=== PATIENT | male | born 1965 | race Caucasian/White ===

== ENCOUNTER 2020-03-06 17:59 | Emergency (ER) | payer BC, SELFPAY ==
[2020-03-06] VITALS (8 sets, daily range): BP systolic 147–181; BP diastolic 81–122; PULSE 62–108; RESP 16–20; TEMP 36.5–36.8; O2SAT 98–100
--- NOTE | ~2020-03-06 | XR_ITS ---
EXAMINATION: XR chest 2V DATE: 03/06/2020 21:13 INDICATION: Heart palpitations, history of hypertension TECHNIQUE: PA and lateral views of the chest are obtained. COMPARISON: None available FINDINGS: The lungs are free of acute opacities. There is no pleural effusion or pneumothorax. The ca rdiomediastinal silhouette is normal. There is moderate thoracic spondylosis. IMPRESSION: 1. No acute cardiopulmonary abnormality. Reviewed, dictated and finalized at location A. RCYCLE BUILDER
--- NOTE | 2020-03-06 18:01 | ECG_ITS ---
Measurements Intervals [place] Rate: 103 P: UT: 0 QRS: 32 QRSD: 88 T: 30 QT: 330 QTc: 432 Interpretive Statements MULTIFOCAL ATRIAL TACHYCARDIA FREQUENT ATRIAL PREMATURE COMPLEXES BASELINE WANDER- V1-V2 ABNORMAL ECG Electronically Signed On 03-07-2020 11:51:35 [employer] PUMP OPERATOR by Jean Lopez D.O.
[2020-03-06 18:20] LABS: Basophils Absolute Auto 0.1 K/mm3 (0.0-0.1); Basophils Percent Auto 0.7 % (0.2-1.2); Eosinophils Absolute Auto 0.2 K/mm3 (0-0.3); Hematocrit 47.6 % (42.0-52.0); Hemoglobin 15.7 g/dL (14.0-18.0); Immature Granulocyte Absolute 0.03 K/mm3 (0.00-0.031); Immature Granulocyte Percent A 0.3 % (0-0.5); Lymphocytes Absolute Auto 3.23 K/mm3 (0.9-3.2); Lymphocytes Percent Auto 31.9 % (18.3-44.2); Mean Corpuscular Volume 84.8 fl (80-100); Monocytes Absolute Auto 0.8 K/mm3 (0.1-0.6); Monocytes Percent Auto 8.2 % (2.6-8.5); Neutrophils Absolute Auto 5.8 K/mm3 (1.3-6.7); Neutrophils Percent Auto 56.9 % (45.5-73.1); Platelet Count Result 264 k/mm3 (150-375); Red Blood Count 5.61 M/mm3 (4.6-6.20); Red Cell Distribution Width 13.5 % (11.5-14.5); White Blood Count 10.1 K/mm3 (4.5-10.0)
[2020-03-06 18:29] LABS: INR 0.9; Prothrombin Time 12.6 Seconds (11.1-14.7)
[2020-03-06 18:30] LABS: Partial Thromboplastin Time 27.9 SECONDS (22.3-36.8)
[2020-03-06 18:33] LABS: Anion Gap 8 mmol/L (8-16); Blood Urea Nitrogen 24 mg/dL (9-20); Carbon Dioxide 31 mmol/L (22-30); Chloride 100 mmol/L (98-107); Estimated CRCL calculation 74 ml/min; Estimated Glomerular Filt Rate > 60; Glucose 116 mg/dL (75-110); Sodium 139 mmol/L (137-145)
[2020-03-06 18:44] LABS: Troponin I < 0.012 ng/mL (0.000-0.034)
[2020-03-06] MEDS: ASPIRIN 81 MG CHEWABLE TABLET 324 MG PO (21:22)
--- NOTE | 2020-03-06 21:28 | ED.GENADULT ---
HPI - General Adult General Chief complaint: Chest Pain Stated complaint: Chest heaviness Time Seen by Provider: 03/06/20 21:09 Source: patient History of Present Illness HPI narrative: Patient is a 55 y/o male complaining of heavy heart beat starting about 4 hours ago. He states that it lasted approximately 2 hours and resolved spontaneously. There is no alleviating or exacerbating factor. He denies any chest pain or SOB. He states that he had a similar episodes last night and it also resolved spontaneously. He states that he his BP was high around 150s/100s. Related Data Allergies Allergy/AdvReac Type Severity Reaction Status Date / Time Penicillins Allergy Unknown Unknown Verified 03/06/20 18:09 Review of Systems Constitutional: Constitutional: Denies chills, Denies fever(s), Denies headache(s) and Denies weakness Eyes: Eyes: Denies blurry vision ENT: Denies headache(s) and Denies neck pain Cardiovascular: Cardiovascular: Denies chest pain, Denies dyspnea and Reports other ( heavy heart beat ) Respiratory: Respiratory: Denies cough and Denies dyspnea Gastrointestinal: Gastrointestinal: Denies abdominal pain, Denies diarrhea, Denies nausea and Denies vomiting Genitourinary: Genitourinary: Denies hematuria and Denies dysuria Musculoskeletal: Musculoskeletal: Denies back pain and Denies neck pain Neurologic: Denies headache(s) and Denies weakness PMFSH Past Medical History Medical History BMI 29.0-29.9,adult Social History Social History Smoking status: Never smoker Alcohol intake: current Exam Const: General: no acute distress and well developed Orientation/consciousness: oriented to person, oriented to place, oriented to time and patient oriented x3 HENMT: Head: normocephalic Ears: external ears normal General nose exam: Normal external nose present Eyes: General: appearance normal, both eyes and all related structures Conjunctivae: conjunctivae normal Neck: Neck: normal visual inspection and full ROM Chest: Chest palpation & inspection: normal inspection of the chest and no tenderness Resp: Effort & Inspection: normal respiratory effort Auscultation: clear to auscultation bilaterally Cardio: Rate: regular rate Rhythm: regular rhythm GI: GI Palp: No abdominal tenderness and Yes Soft to palpation Skin: General skin exam: normal color and turgor normal Neuro: General: oriented to person, oriented to place, oriented to time and patient oriented x3 Cognition (Neuro): normal cognition Extrem: General: normal to inspection, full ROM and no pedal edema Psych: Appearance: grossly normal Mental Status: mental status grossly normal Affect: normal affect Course Vital Signs Vital signs: Vital Signs Temperature 36.5 C 03/06/20 18:03 Pulse Rate 108 H 03/06/20 18:03 Respiratory Rate 20 03/06/20 18:03 Blood Pressure 181/122 H 03/06/20 18:03 Pulse Oximetry 100 03/06/20 18:03 Temperature 36.8 C 03/06/20 23:36 Pulse Rate 62 03/06/20 23:36 Respiratory Rate 16 03/06/20 23:36 Blood Pressure 160/86 H 03/06/20 23:36 Pulse Oximetry 99 03/06/20 23:36 Medical Decision Making Vital Signs Vital Signs: Vital Signs Temperature 36.5 C 03/06/20 18:03 Pulse Rate 108 H 03/06/20 18:03 Respiratory Rate 20 03/06/20 18:03 Blood Pressure 181/122 H 03/06/20 18:03 Pulse Oximetry 100 03/06/20 18:03 Temperature 36.8 C 03/06/20 23:36 Pulse Rate 62 03/06/20 23:36 Respiratory Rate 16 03/06/20 23:36 Blood Pressure 160/86 H 03/06/20 23:36 Pulse Oximetry 99 03/06/20 23:36 Lab Data Result diagrams: 03/06/20 18:11 03/06/20 18:11 Labs: Lab Results 03/06/20 03/06/20 03/06/20 Range/Units 18:11 18:11 18:11 WBC 10.1 H (4.5-10.0) K/mm3 RBC 5.61 (4.6-6.20) M/mm3 Hgb 15.7 (14.0-18.0) g/dL Hct 47.6
--- NOTE | 2020-03-06 21:29 | PC.NURSE ---
2nd trop drawn by JAE ellis and sent to lab.
[2020-03-06 21:56] LABS: Troponin I < 0.012 ng/mL (0.000-0.034)
--- NOTE | 2020-03-06 22:57 | ECG_ITS ---
Measurements Intervals [place] Rate: 67 P: 42 VT: 195 QRS: 28 QRSD: 90 T: 19 QT: 366 QTc: 389 Interpretive Statements SINUS RHYTHM BORDERLINE AV CONDUCTION DELAY BASELINE ARTIFACT- I, II, III, V2 BORDERLINE ECG Electronically Signed On 03-07-2020 7:09:57 FAMILY LIFE EDUCATOR by Jean Lopez D.O.
== END 2020-03-06 23:38 | disposition home or self-care (01) ==
PROVIDERS: Emergency Provider Emergency Medicine; PCP Family Medicine
DX: R00.2 Palpitations (principal); I49.1 Atrial premature depolarization; I10 Essential (primary) hypertension; I47.1 Supraventricular tachycardia; R94.31 Abnormal electrocardiogram [ECG] [EKG]
CPT/HCPCS: 36415; 71046; 80048; 84484; 85025; 85610; 85730; 93005; 99284; A9270

== ENCOUNTER 2020-03-21 09:43 | Outpatient (CLI) | payer BC, SELFPAY ==
--- NOTE | 2020-03-23 16:20 | WPDHOLTEREM ---
Holter/Event Monitor Holter/Event Monitor Date of procedure: 03/21/20 Procedure Type: 24 hour holter monitor Indications: Palpitations Conclusion: 1. 24 hour holter monitor on 03/21/20. 2. Predominant rhythm is sinus rhythm or ectopic atrial rhythm/wandering pacemaker. 3. There are 5,898 premature supraventricular complexes, 1,071 supraventricular couplets. There are 814 atrial tachycardia, fastest at 171 bpm and longest lasting 7 beats. 4. There are 422 premature ventricular complexes and 7 ventricular couplets. No ventricular tachycardia. 5. No sinoatrial or atrioventricular blocks. No significant pauses greater than 2 seconds. 6. No symptoms available for correlation.
== END 2020-03-21 09:44 | disposition home or self-care (01) ==
PROVIDERS: PCP Family Medicine; Visit Provider Physician Assistant Medical
DX: R00.2 Palpitations (principal); I49.1 Atrial premature depolarization
CPT/HCPCS: 93225; 93226

== ENCOUNTER 2020-04-26 13:27 | Outpatient (CLI) | payer BC, SELFPAY ==
--- NOTE | 2020-04-26 13:30 | ECHO_ITS ---
Patient Info Name: Fernando Salgado Age: 55 years : 1965 Gender: Male Ht: 69 in Wt: 205 lbs BSA: 2.15 m2 HR: 85 bpm BP: 166 / 98 mmHg Technical Quality: Good Exam Date: 04/26/2020 1:45 PM Exam Location: [facility] Patient Status: Outpatient Admit Date: 04/26/2020 Staff Ordering Physician: Jean Lopez DO Program Mgr: Carlyn Ross RDCS Attending Provider: Jean Lopez DO Referring Physician: John DUGAN; Exam Type: CA echo doppler color flow Study Info Indications R00.2 - Palpitations Complete two-dimensional, color flow and Doppler transthoracic echocardiogram is performed. Summary 1. Complete two-dimensional, color flow and Doppler transthoracic echocardiogram is performed. 2. Left ventricular chamber dimension is normal. 3. Left ventricular systolic function is normal, estimated at 60-65%. 4. The left ventricular diastolic function is normal. 5. Left atrial chamber dimension is mildly enlarged. 6. There is trace mitral valve regurgitation. 7. There is trace tricuspid valve regurgitation. 8. No pulmonary hypertension, estimated pulmonary arterial systolic pressure is 28 mmHg. Left Ventricle Tissue doppler E/e' is not performed. Left ventricular chamber dimension is normal. Left ventricular systolic function is normal, estimated at 60-65%. The left ventricular diastolic function is normal. Right Ventricle Right ventricular chamber dimension is normal. Right ventricular systolic function is normal. Left Atria Left atrial chamber dimension is mildly enlarged. Right Atria Right atrial chamber dimension is normal. Aortic Valve The aortic valve is trileaflet. There is no aortic valve stenosis. There is no aortic valve regurgitation. Pulmonic Valve There is no pulmonic regurgitation. Mitral Valve There is no mitral valve stenosis. There is trace mitral valve regurgitation. Tricuspid Valve There is trace tricuspid valve regurgitation. No pulmonary hypertension, estimated pulmonary arterial systolic pressure is 28 mmHg. Pericardium/Pleural There is no pericardial effusion. Inferior Vena Cava Normal inferior vena cava with >50% collapse upon inspiration consistent with normal right atrial pressure, 5 mmHg. Aorta The aortic root size at the sinus of Valsalva is normal. Left Ventricular Outflow Tract Name Value Normal LVOT 2D LVOT Diameter 2.0 cm LVOT Doppler LVOT Peak Gradient 4 mmHg LVOT Mean Gradient 3 mmHg LVOT VTI 22 cm LVOT VTI/AV VTI Ratio 0.8 LVOT Stroke Volume 72 ml LVOT CO 15.1 l/min LVOT CI 7.0 l/min/m2 Pulmonic Valve Name Value Normal PV Doppler PV Peak Gradient
== END 2020-04-26 13:28 | disposition home or self-care (01) ==
PROVIDERS: PCP Family Medicine; Visit Provider Internal Medicine Cardiovascular Disease
DX: R00.2 Palpitations (principal)
CPT/HCPCS: 93306